=== PATIENT | female | born 1990 | race Caucasian/White ===

== ENCOUNTER 2022-01-31 05:06 | Inpatient (IN) | payer MEDICAID ==
[~2022-01-31] VITALS: Ht 162.6 cm; Wt 108.9 kg
[2022-01-31] MEDS ORDERED: LIDOCAINE HCL 1% 20ML VIAL (Pyxis) INJ INFIL SCH (06:15)
[2022-01-31] MEDS ORDERED: MISOPROSTOL 100MCG TABLET VG SCH (06:15)
[2022-01-31] MEDS ORDERED: METHYLERGONOVINE MALEATE 0.2 MG/ML IM PRN (06:15)
[2022-01-31] MEDS ORDERED: BUTORPHANOL TARTRATE 2 MG/ML VIAL IV PRN (06:15)
[2022-01-31] MEDS ORDERED: NALOXONE HCL 0.4 MG/ML 1ML VIAL IM PRN (06:15)
[2022-01-31] MEDS ORDERED: CARBOPROST TROMETHAMINE 250 MCG/ML AMPUL IM PRN (06:15)
[2022-01-31] MEDS: LACTATED RINGERS 1,000 ML IV SCH ×2 (06:45→11:42)
[2022-01-31] MEDS ORDERED: PENICILLIN G POTASSIUM 5 MMU in DEXT 5% WATER 100 ML IV NR (07:00)
[2022-01-31 07:23] LABS: BASOPHILS % 0.3 % (0.0-2.0); EOSINOPHILS % 0.6 % (0.0-5.0); HEMOGLOBIN. 12.2 g/dL (12.0-16.0); LYMPHOCYTES % 31.5 % (20.0-50.0); MEAN CORPUSCULAR HEMOGLOBIN 31.6 pg (28.0-32.0); MEAN CORPUSCULAR VOLUME 90.8 fL (81.0-99.0); MEAN PLATELET VOLUME 9.2 fl (7.4-10.4); NEUTROPHILS % 61.6 % (40.0-76.0); PLATELET 170 x1000/uL (130-400); RED BLOOD CELL COUNT 3.86 mill/uL (4.2-5.4); RED CELL DISTRIBUTION WIDTH 13.5 % (11.6-14.6)
[2022-01-31] MEDS ORDERED: PREN1TAB78 PO (07:31)
[2022-01-31 07:38] LABS: INR 0.9; PARTIAL THROMBOPLASTIN TIME 27.3 sec (23.4-31.0); PROTHROMBIN TIME 9.8 sec (9.6-11.0)
[2022-01-31] MEDS: OXYTOCIN 30 UNITS/500ML NS PMX 500 ML IV SCH ×3 (08:14→22:06)
[2022-01-31] MEDS ORDERED: INFLUENZA VACCINE 05/PF 0.5 ML SYRINGE IM ONE (08:15)
[2022-01-31 08:46] LABS: CLARITY URINE CLEAR (CLEAR); COLOR URINE YELLOW (YELLOW); PH URINE 6.5 (4.5-8.0); SPECIFIC GRAVITY URINE 1.011 (1.005-1.030)
[2022-01-31 08:47] LABS: KETONES URINE NEGATIVE (NEGATIVE); LEUKOCYTE ESTERASE URINE NEGATIVE (NEGATIVE); NITRITE URINE NEGATIVE (NEGATIVE); OCCULT BLOOD URINE TRACE (NEGATIVE); PROTEIN URINE TRACE (NEGATIVE); UROBILINOGEN URINE 0.2 E.U./dL (0.2-1.0)
[2022-01-31 09:34] LABS: *AMPHETAMINES SCREEN URINE NEGATIVE (NEGATIVE); *BARBITURATES SCREEN URINE NEGATIVE (NEGATIVE); *BENZODIAZEPINES SCREEN URINE NEGATIVE (NEGATIVE); *COCAINE SCREEN URINE NEGATIVE (NEGATIVE); CANNABINOID URINE SCREEN NEGATIVE (NEGATIVE); METHADONE URINE SCREEN NEGATIVE (NEGATIVE); OPIATES URINE SCREEN NEGATIVE (NEGATIVE); PHENCYCLIDINE URINE SCREEN NEGATIVE (NEGATIVE)
[2022-01-31 10:28] LABS: CHLORIDE 108 mEq/L (98-107)
[2022-01-31] MEDS ORDERED: ROPIVACAINE HCL/PF EPIDURAL 200 ML EPI SCH (10:30)
[2022-01-31] MEDS ORDERED: PENICILLIN G POTASSIUM 2.5 MMU in DEXTROSE 5% WATER 50 ML IV SCH (11:00)
[2022-01-31] MEDS: MAGNESIUM 20 G PREMIX (L & D) 500 ML IV SCH ×2 (11:13→18:45)
[2022-01-31] MEDS ORDERED: LACTATED RINGERS 1,000 ML IV SCH (13:15)
[2022-01-31] MEDS ORDERED: LANOLIN OINT 7GM TUBE TOP PRN (15:45)
[2022-01-31] MEDS ORDERED: IBUPROFEN 400MG TABLET PO PRN (15:45)
[2022-01-31] MEDS ORDERED: DIPHENHYDRAMINE 25MG CAPSULE PO PRN (15:45)
[2022-01-31] MEDS ORDERED: OXYTOCIN 30 UNITS/500ML NS PMX 500 ML IV SCH (15:45)
[2022-01-31] MEDS ORDERED: RHO(D) IMMUNE GLOBULIN 300 MCG/SYR IM PRN (15:45)
[2022-01-31 17:00] VITALS: BP 150/100
[2022-01-31 17:45] VITALS: BP 135/83
[2022-01-31 18:20] VITALS: BP 148/100
[2022-01-31 18:45] VITALS: BP 152/91
[2022-01-31 19:45] VITALS: BP 145/88
[2022-01-31 22:00] VITALS: BP 136/86
[2022-01-31] MEDS ORDERED: TETANUS, DIPHTHERIA, PERTUSSIS VAC/PF 0.5ML (>10YR OLD) IM ONE (22:00)
[2022-01-31] MEDS: IBUPROFEN 800MG TABLET PO PRN (22:06)
[2022-02-01] VITALS: BP 125/79
[2022-02-01 02:00] VITALS: BP 126/85
[2022-02-01] MEDS: MAGNESIUM 20 G PREMIX (L & D) 500 ML IV SCH ×2 (03:20→03:23)
[2022-02-01 04:00] VITALS: BP 122/85
[2022-02-01 06:00] VITALS: BP 122/85
[2022-02-01 06:49] LABS: BASOPHILS % 0.3 % (0.0-2.0); EOSINOPHILS % 0.2 % (0.0-5.0); HEMATOCRIT. 33.7 % (36.0-48.0); HEMOGLOBIN. 11.5 g/dL (12.0-16.0); LYMPHOCYTES % 21.6 % (20.0-50.0); MEAN CORPUSCULAR HEMOGLOBIN 31.3 pg (28.0-32.0); MEAN CORPUSCULAR VOLUME 91.5 fL (81.0-99.0); MEAN PLATELET VOLUME 8.9 fl (7.4-10.4); MONOCYTES % 6.7 % (2.0-8.0); NEUTROPHILS % 71.2 % (40.0-76.0); PLATELET 142 x1000/uL (130-400); RED BLOOD CELL COUNT 3.69 mill/uL (4.2-5.4); RED CELL DISTRIBUTION WIDTH 13.6 % (11.6-14.6)
[2022-02-01] MEDS ORDERED: PRENATAL VIT/FE FUMARATE/FA TABLET PO SCH (09:00)
[2022-02-01 20:00] VITALS: BP 130/84
[2022-02-01] MEDS: IBUPROFEN 800MG TABLET PO PRN (23:00)
[2022-02-02 04:00] VITALS: BP 121/88
[2022-02-02] MEDS: IBUPROFEN 800MG TABLET PO PRN (05:09)
[2022-02-02] MEDS ORDERED: IBUP-2030 PO (07:51)
[2022-02-02 09:00] VITALS: BP 128/84
[2022-02-02 14:58] LABS: HEPATITIS B SURFACE ANTIGEN NEGATIVE
== END 2022-02-02 11:00 | disposition home or self-care (01) | DRG 560 ==
LOC: OBSVTOIN 05:06 → 8 EST LDRP 05:06 → 8EST 16:56
PROVIDERS: ADMIT Obstetrics & Gynecology; ATTEND Obstetrics & Gynecology
PROC: 10E0XZZ Delivery of Products of Conception, External Approach (ICD-10-PCS; principal; 2022-01-31)
PROC: 3E0R3BZ Introduction of Anesthetic Agent into Spinal Canal, Percutaneous Approach (ICD-10-PCS; 2022-01-31)
PROC: 00HU33Z Insertion of Infusion Device into Spinal Canal, Percutaneous Approach (ICD-10-PCS; 2022-01-31)
DX: O13.4 Gestational [pregnancy-induced] hypertension without significant proteinuria, complicating childbirth (principal); Z37.0 Single live birth; Z20.822 Contact with and (suspected) exposure to COVID-19; Z3A.37 37 weeks gestation of pregnancy
CPT/HCPCS: 36415; 76805; 76818; 80053; 80305; 81003; 83735; 84550; 85025; 85384; 86592; 86703; 86762; 86850; 86900; 87340; 87426; 90686; 90715; 99281; J0595; J2540; J3475; J7060; J7120; A4315; J2590